=== PATIENT | male | born 2000 | race Caucasian/White ===

== ENCOUNTER 2021-05-09 12:45 | Emergency (ER) | payer OTHER ==
[~2021-05-09] VITALS: Ht 167.6 cm; Wt 63.5 kg
== END 2021-05-09 22:52 | disposition home or self-care (01) ==
LOC: ER 12:45
DX: R06.02 Shortness of breath (principal); T75.1XXA Unspecified effects of drowning and nonfatal submersion, initial encounter; V00-Y99 External causes of morbidity; Y93.89 Activity, other specified; Y92.89 Other specified places as the place of occurrence of the external cause; Y99.8 Other external cause status